=== PATIENT | male | born 1960 | race African-American/Black ===

== ENCOUNTER 2016-11-09 12:11 | Emergency (ER) | payer MEDICARE, MEDICAID ==
[~2016-11-09] VITALS: Ht 182.9 cm; Wt 88.6 kg
[2016-11-09 12:18] VITALS: BP 156/91
[2016-11-09] MEDS ORDERED: METF10002 PO (12:23)
[2016-11-09] MEDS ORDERED: BENA10TA3 PO (12:23)
[2016-11-09 12:27] LABS: GLUCOSE,POINT OF CARE 108 MG/DL (70-110)
== END 2016-11-09 14:54 | disposition home or self-care (01) ==
LOC: EMS 12:13
DX: H10.9 Unspecified conjunctivitis (principal); E11.9 Type 2 diabetes mellitus without complications; I10 Essential (primary) hypertension; F17.210 Nicotine dependence, cigarettes, uncomplicated; F11.10 Opioid abuse, uncomplicated
CPT/HCPCS: 82962; 99283